=== PATIENT | female | born 1980 | race African-American/Black ===

== ENCOUNTER → 2016-10-25 | Outpatient (CLI) | payer BC ==
--- NOTE | 2016-10-25 12:35 | RAD ---
Indication heavy painful menstruation. Initially transabdominal scans were obtained. The initial transabdominal scans were supplemented with transvaginal scans. The hCG status is uncertain but for the purposes of this dictation will be assumed to be negative. The uterus measures approximately 10 x 6 x 4 cm. The endometrial thickness of approximately 7 mm is normal. Note is made that the uterus and endometrium are somewhat vascular. This is nonspecific. The ovaries appeared unremarkable. Occasional follicular cysts were identified. IMPRESSION: No significant finding seen on pelvic ultrasound exam
== END | disposition home or self-care (01) ==
LOC: US 12:02
PROVIDERS: ATTEND Obstetrics & Gynecology
DX: N92.0 Excessive and frequent menstruation with regular cycle (principal); N94.6 Dysmenorrhea, unspecified
CPT/HCPCS: 76830; 76856

== ENCOUNTER 2017-09-21 14:17 | Emergency (ER) | payer BC ==
[2017-09-21] MEDS: cefTRIAXone IM 250 MG VIAL IM (14:58)
[2017-09-21] MEDS: AZITHROMYCIN 250 MG TABLET. PO (14:58)
[2017-09-21] MEDS: HYDROcodone/APAP 5/325MG 1 TAB TABLET PO (15:01)
[2017-09-21 15:43] LABS: BILIRUBIN,URINE NEGATIVE (NEG); CLARITY,URINE CLEAR; COLOR,URINE YELLOW; GLUCOSE,URINE NEGATIVE (NEG); NITRITE,URINE NEGATIVE (NEG); PH,URINE 5.5; PROTEIN,URINE NEGATIVE (NEG-TRACE); UROBILINOGEN,URINE 0.2 mg/dL (0.2 mg/dL)
[2017-09-21 16:01] LABS: BACTERIA,URINE 0 /HPF (0-FEW); RBC,URINE 0 /HPF (0-2); SQUAMOUS EPITHELIAL CELL,UR FEW /LPF; WBC,URINE 0 /HPF (0-4)
[2017-09-24 14:31] LABS: CHLAMYDIA PROBE Negative (Negative); GC PROBE Negative (Negative)
== END 2017-09-21 16:53 | disposition home or self-care (01) ==
LOC: ER 16:53
DX: N76.0 Acute vaginitis (principal); B96.89 Other specified bacterial agents as the cause of diseases classified elsewhere; R10.2 Pelvic and perineal pain; Z98.890 Other specified postprocedural states
CPT/HCPCS: 76830; 76856; 81001; 87491; 87591; 96372; 99285-25; J0696; Q0111; Q0144

== ENCOUNTER 2017-09-28 23:53 | Emergency (ER) | payer SELFPAY ==
[~2017-09-28] VITALS: Ht 167.6 cm; Wt 75.7 kg
[~2017-09-28 23:53] MED LIST: HYDR-2758 PO; METR500T8 PO
[2017-09-29 00:19] LABS: BILIRUBIN,URINE NEGATIVE (NEG); CLARITY,URINE CLEAR; COLOR,URINE YELLOW; NITRITE,URINE NEGATIVE (NEG); PH,URINE 5.5; PROTEIN,URINE NEGATIVE (NEG-TRACE); UROBILINOGEN,URINE 0.2 mg/dL (0.2 mg/dL)
[2017-09-29 00:27] LABS: BACTERIA,URINE 0 /HPF (0-FEW); RBC,URINE RARE /HPF (0-2); SQUAMOUS EPITHELIAL CELL,UR FEW /LPF; WBC,URINE RARE /HPF (0-4)
[2017-09-29] MEDS ORDERED: KETOROLAC 30 MG/ML VIAL. IV ONE (01:00)
[2017-09-29 01:20] LABS: BASO % 0 % (0-3); EOS # 0.3 x10^3/uL (0.0-0.7); EOS % 3 % (0-3); HEMATOCRIT 41.2 % (36.0-47.0); HEMOGLOBIN 14.6 g/dL (12.0-15.5); LYMPH # 1.6 x10^3/uL (1.0-4.8); LYMPH % 18 % (24-48); MEAN CORPUSCULAR HEMOGLOBIN 34 pg (25-35); MEAN CORPUSCULAR HGB CONC 36 g/dL (31-37); MEAN CORPUSCULAR VOLUME 97 fL (79-100); MONO # 0.8 x10^3/uL (0.0-1.1); MONO % 9 % (0-9); NEUT # 6.1 x10^3uL (1.8-7.7); NEUT % 69 % (31-73); PLATELET COUNT 239 x10^3/uL (140-400); RED BLOOD COUNT 4.27 x10^6/uL (3.50-5.40); WHITE BLOOD COUNT 8.8 x10^3/uL (4.0-11.0)
[2017-09-29 01:29] LABS: CALCIUM 8.7 mg/dL (8.5-10.1); CREATININE 0.8 mg/dL (0.6-1.0); GFR 97.1; POTASSIUM 3.6 mmol/L (3.5-5.1)
[2017-09-29 01:35] LABS: ALBUMIN 4.1 g/dL (3.4-5.0); ALBUMIN/GLOBULIN RATIO 1.2 (1.0-1.7); MAGNESIUM 1.9 mg/dL (1.8-2.4); TOTAL BILIRUBIN 0.4 mg/dL (0.2-1.0); TOTAL PROTEIN 7.4 g/dL (6.4-8.2)
--- NOTE | 2017-09-29 02:29 | RAD ---
Ultrasound pelvis, ultrasound transvaginal 09/29/2017 Clinical indication: Severe left lower quadrant pain. COMPARISON: Ultrasound 09/21/2017, 10/25/2016, CT abdomen and pelvis 01/07/2006 FINDINGS: Endovaginal and transabdominal images were performed. Uterus measures 9.1 x 5.6 x 5.0 cm. Posterior fundal myometrial hypoechoic shadowing structure with a small anterior cystic component measuring 2.3 x 1.9 x 2.4 cm. Right aspect of the posterior fundal myometrium there is a similar-appearing shadowing structure measuring up to 0.9 cm. There is diffuse linear shadowing throughout the uterus on the cine images. Endometrium is not well visualized due to the shadowing. There are multiple cervical nabothian cysts. Trace pelvic free fluid, likely physiologic. Right ovary measures 3.4 x 2.3 x 1.8 cm with normal color Doppler imaging. Left ovary measures 3.1 x 1.5 x 1.9 cm with normal color Doppler imaging. IMPRESSION: 1. No ovarian torsion. 2. Multiple intramural uterine fibroids, largest posterior uterine fundus which abuts the endometrium and a small submucosal component cannot be excluded. 3. Diffuse uterine linear shadowing, may be due to additional smaller fibroids or adenomyosis. 4. Endometrium is not visualized due to the shadowing. Electronically signed by: Jonh Pedersen MD (09/29/2017 2:25 AM) [id number]
[2017-09-29] MEDS ORDERED: fentaNYL PF VIAL 100 MCG/2 ML VIAL IV ONE (02:30)
[2017-09-29] MEDS ORDERED: NAPR-695 PO (02:50)
--- NOTE | 2017-09-29 02:50 | PHYS DOC ---
Past Medical History Past Medical History: No Pertinent History Past Surgical History: Additional Past Surgical Histo: parathyroid,uterine ablation,sarcoidosis, Alcohol Use: Occasionally Drug Use: None Adult General Chief Complaint Chief Complaint: ABDOMINAL PAIN HPI HPI Patient is a 37 year old [f__sex] who presents with [] Review of Systems Review of Systems Constitutional: Denies fever or chills [] Eyes: Denies change in visual acuity, redness, or eye pain [] HENT: Denies nasal congestion or sore throat [] Respiratory: Denies cough or shortness of breath [] Cardiovascular: No additional information not addressed in HPI [] GI: Denies abdominal pain, nausea, vomiting, bloody stools or diarrhea [] : Denies dysuria or hematuria [] Musculoskeletal: Denies back pain or joint pain [] Integument: Denies rash or skin lesions [] Neurologic: Denies headache, focal weakness or sensory changes [] Endocrine: Denies polyuria or polydipsia [] All other systems were reviewed and found to be within normal limits, except as documented in this note. Current Medications Current Medications Current Medications Medications (Trade) Dose Ordered Sig/Alok Start Time Stop Time Status Last Admin Dose Admin Fentanyl Citrate (Fentanyl 2ml Vial) 50 mcg 1X ONCE 09/29/17 02:30 09/29/17 02:31 DC 09/29/17 02:36 50 MCG Ketorolac Tromethamine (Toradol 30mg Vial) 30 mg 1X ONCE 09/29/17 01:00 09/29/17 01:01 DC 09/29/17 00:58 30 MG Allergies Allergies Allergies Coded Allergies Type Severity Reaction Last Updated Verified No Known Drug Allergies 09/21/17 No Physical Exam Physical Exam Constitutional: Well developed, well nourished, no acute distress, non-toxic appearance. [] HENT: Normocephalic, atraumatic, bilateral external ears normal, oropharynx moist, no oral exudates, nose normal. [] Eyes: PERRLA, EOMI, conjunctiva normal, no discharge. [] Neck: Normal range of motion, no tenderness, supple, no stridor. [] Cardiovascular:Heart rate regular rhythm, no murmur [] Lungs & Thorax: Bilateral breath sounds clear to auscultation [] Abdomen: Bowel sounds normal, soft, no tenderness, no masses, no pulsatile masses. [] Skin: Warm, dry, no erythema, no rash. [] Back: No tenderness, no CVA tenderness. [] Extremities: No tenderness, no cyanosis, no clubbing, ROM intact, no edema. [] Neurologic: Alert and oriented X 3, normal motor function, normal sensory function, no focal deficits noted. [] Psychologic: Affect normal, judgement normal, mood normal. [] Current Patient Data Vital Signs Vital Signs Date Time Temp Pulse Resp B/P (MAP) Pulse Ox O2 Delivery O2 Flow Rate FiO2 09/29/17 02:36 18 99 Room Air 09/28/17 23:55 98.2 85 191/121 (144) 98.2 Lab Values Laboratory Tests Test 09/28/17 23:59 09/29/17 00:09 09/29/17 01:10 Urine Collection Type Unknown Urine Color Yellow Urine Clarity Clear Urine pH 5.5 Urine Specific [place] 1.010 Urine Protein Negative mg/dL (NEG-TRACE) Urine Glucose (UA) Negative mg/dL (NEG) Urine Ketones (Stick) Negative mg/dL (NEG) Urine Blood Negative (NEG) Urine Nitrite Negative (NEG) Urine Bilirubin Negative (NEG) Urine Urobilinogen Dipstick 0.2 mg/dL (0.2 mg/dL) Urine Leukocyte Esterase Negative (NEG) Urine RBC Rare /HPF (0-2) Urine WBC Rare /HPF (0-4) Urine Squamous Epithelial Cells Few /LPF Urine Bacteria 0 /HPF (0-FEW) POC Urine HCG, Qualitative Hcg negative (Negative) White Blood Count 8.8 x10^3/uL (4.0-11.0) Red Blood Count 4.27 x10^6/uL (3.50-5.40) Hemoglobin 14.6 g/dL (12.0-15.5) Hematocrit 41.2 % (36.0-47.0) Mean Corpuscular Volume 97 fL (79-100) Mean Corpuscular Hemoglobin 34 pg (25-35) Mean Corpuscular Hemoglobin Concent 36 g/dL (31-37) Red Cell Distribution Width 13.0 % (11.5-14.5) Platelet Count 239 x10^3/uL (140-400) Neutrophils (%) (Auto) 69 % (31-73) Lymphocytes (%) (Auto) 18 % (24-48) L Monocytes (%) (Auto) 9 % (0-9) Eosinophils (%) (Auto) 3 % (0-3) Basophils (%) (Auto) 0 % (0-3) Neutrophils # (Auto) 6.1 x10^3uL (1.8-7.7) Lymphocytes # (Auto) 1.6 x10^3/uL (1.0-4.8) Monocytes # (Auto) 0.8 x10^3/uL (0.0-1.1) Eosinophils # (Auto) 0.3 x10^3/uL (0.0-0.7) Basophils # (Auto) 0.0 x10^3/uL (0.0-0.2) Sodium Level 138 mmol/L (136-145) Potassium Level 3.6 mmol/L (3.5-5.1) Chloride Level 103 mmol/L (98-107) Carbon Dioxide Level 26 mmol/L (21-32) Anion Gap 9 (6-14) Blood Urea Nitrogen 8 mg/dL (7-20) Creatinine 0.8 mg/dL (0.6-1.0) Estimated GFR (Cockcroft-Gault) 97.1 BUN/Creatinine Ratio 10 (6-20) Glucose Level 91 mg/dL (70-99) Calcium Level 8.7 mg/dL (8.5-10.1) Magnesium Level 1.9 mg/dL (1.8-2.4) Total Bilirubin 0.4 mg/dL (0.2-1.0) Aspartate Amino Transferase (AST) 18 U/L (15-37) Alanine Aminotransferase (ALT) 21 U/L (14-59) Alkaline Phosphatase 72 U/L (46-116) Total Protein 7.4 g/dL (6.4-8.2) Albumin 4.1 g/dL (3.4-5.0) Albumin/Globulin Ratio 1.2 (1.0-1.7) Lipase 55 U/L (73-393) L Laboratory Tests 09/29/17 01:10 Laboratory Tests 09/29/17 01:10 EKG EKG [] Radiology/Procedures Radiology/Procedures [] Course & Med Decision Making Course & Med Decision Making Pertinent Labs and Imaging studies reviewed. (See chart for details) [] Dragon Disclaimer Dragon Disclaimer This electronic medical record was generated, in whole or in part, using a voice recognition dictation system. Departure Departure Impression: Primary Impression: Pelvic pain Additional Impression: Uterine fibroid Disposition: 01 HOME, SELF-CARE Condition: STABLE Referrals: NO PCP (PCP) Patient Instructions: Pelvic Pain, Female, [id number], Uterine Fibroid, Easy- to-Read Scripts Naproxen (NAPROXEN) 375 Mg Tablet 1 TAB PO TID PRN for PAIN, #20 TAB 0 Refills Prov: KARLIE ARECHIGA DO 09/29/17 Problem Qualifiers Additional Impression: Uterine fibroid Uterine leiomyoma location: unspecified location Qualified Codes: D25.9 - Leiomyoma of uterus, unspecified KARLIE ARECHIGA DO Sep 29, 2017 02:50
[2017-09-29 03:00] VITALS: BP 137/87
== END 2017-09-29 03:02 | disposition home or self-care (01) ==
LOC: ER 23:53
DX: D25.1 Intramural leiomyoma of uterus (principal); Z98.890 Other specified postprocedural states
CPT/HCPCS: 36415; 76830; 76856; 80053; 81001; 81025; 83690; 83735; 85025; 96374; 96375; 99285; J1885; J3010

== ENCOUNTER 2017-11-13 16:02 | Emergency (ER) | payer SELFPAY ==
[~2017-11-13] VITALS: Ht 167.6 cm; Wt 75.7 kg
[~2017-11-13 16:02] MED LIST changes: +NAPR-695 PO
[2017-11-13] MEDS ORDERED: IV NORMAL SALINE 1000ML BAG 1,000 ML IV ONE (16:45)
[2017-11-13] MEDS ORDERED: KETOROLAC 15 MG/ML VIAL. IV ONE (16:45)
[2017-11-13] MEDS ORDERED: ORPHENADRINE CITRATE 60 MG/2 ML VIAL. IV ONE (16:45)
[2017-11-13 17:09] LABS: BASO % 0 % (0-3); EOS % 0 % (0-3); HEMATOCRIT 44.9 % (36.0-47.0); HEMOGLOBIN 15.6 g/dL (12.0-15.5); LYMPH % 13 % (24-48); MEAN CORPUSCULAR HEMOGLOBIN 34 pg (25-35); MEAN CORPUSCULAR HGB CONC 35 g/dL (31-37); MEAN CORPUSCULAR VOLUME 97 fL (79-100); MONO # 0.5 x10^3/uL (0.0-1.1); MONO % 6 % (0-9); NEUT # 6.3 x10^3uL (1.8-7.7); NEUT % 81 % (31-73); PLATELET COUNT 261 x10^3/uL (140-400); RED BLOOD COUNT 4.62 x10^6/uL (3.50-5.40); RED CELL DISTRIBUTION WIDTH 13.5 % (11.5-14.5); WHITE BLOOD COUNT 7.8 x10^3/uL (4.0-11.0)
[2017-11-13 17:20] LABS: BILIRUBIN,URINE NEGATIVE (NEG); CLARITY,URINE CLOUDY; COLOR,URINE YELLOW; NITRITE,URINE NEGATIVE (NEG); PROTEIN,URINE NEGATIVE (NEG-TRACE); UROBILINOGEN,URINE 0.2 mg/dL (0.2 mg/dL)
[2017-11-13 17:21] LABS: CALCIUM 9.5 mg/dL (8.5-10.1); CREATININE 0.8 mg/dL (0.6-1.0); GFR 97.1; POTASSIUM 4.1 mmol/L (3.5-5.1)
[2017-11-13 17:38] LABS: ALBUMIN 4.2 g/dL (3.4-5.0); ALBUMIN/GLOBULIN RATIO 1.1 (1.0-1.7); TOTAL BILIRUBIN 0.5 mg/dL (0.2-1.0); TOTAL PROTEIN 8.2 g/dL (6.4-8.2)
[2017-11-13 17:40] LABS: BACTERIA,URINE FEW /HPF (0-FEW)
[2017-11-13 17:41] LABS: SQUAMOUS EPITHELIAL CELL,UR FEW /LPF
--- NOTE | 2017-11-13 17:42 | RAD ---
Pelvic ultrasound to include transabdominal and transvaginal imaging 11/13/2017 CLINICAL HISTORY: Left adnexal pain. TECHNIQUE: Using the distended urinary bladder as a sonographic window, a real-time ultrasound examination of the pelvis was performed. Additionally in an attempt to better evaluate the uterus and adnexa, a transvaginal ultrasound study was performed. Multiple images were obtained. FINDINGS: Comparison study is dated 09/29/2017. The uterus is mildly enlarged. It measures 9.0 x 6.1 x 6.4 cm in longitudinal, transverse, and AP dimension. Nabothian cysts are seen within the cervix which measure 6 mm to 8 mm in size. An oval-shaped mass is seen within the mid uterine body posterior to the endometrial echo complex. This has a fluid component superiorly. The inferior aspect is echogenic. It measures 3.5 cm in greatest diameter. This has a different sonographic appearance when compared to the patient's previous ultrasound study where it was felt to represent a uterine fibroid. This could represent a fibroid with hemorrhage or could represent complex fluid within the endometrium. The right ovary is normal in size and echogenicity. It measures 3.8 x 1.6 x 1.5 cm in size. Left ovary is normal in size. It measures 4.9 x 2.3 x 2.0 cm in size. Within the left ovary a oval-shaped anechoic structure with internal echoes is seen. It measures 2.5 cm in greatest diameter. This likely represents a hemorrhagic cyst. No free fluid is seen. IMPRESSION: 1. 3.5 cm complex cystic mass is seen immediately posterior to the endometrial echo complex within the uterine body. There there has been a significant change in its sonographic appearance since the previous examination. This could represent a fibroid with hemorrhage or complex fluid within the endometrium. 2. 2.5 cm probable hemorrhagic cyst involving the left ovary. Electronically signed by: Kwan Glasgow MD (11/13/2017 5:38 PM) [facility]
[2017-11-13] MEDS ORDERED: OXYC-323 PO (17:54)
--- NOTE | 2017-11-13 17:55 | PHYS DOC ---
Past Medical History Past Medical History: Uterine Fibroids Additional Past Medical Histor: Sarcoidosis Past Surgical History: Additional Past Surgical Histo: parathyroid, uterine ablation, D&C Alcohol Use: Occasionally Drug Use: None Adult General Chief Complaint Chief Complaint: ABDOMINAL PAIN HPI HPI Patient is a 37 year old [f__sex] who presents with [] Review of Systems Review of Systems Constitutional: Denies fever or chills [] Eyes: Denies change in visual acuity, redness, or eye pain [] HENT: Denies nasal congestion or sore throat [] Respiratory: Denies cough or shortness of breath [] Cardiovascular: No additional information not addressed in HPI [] GI: Denies abdominal pain, nausea, vomiting, bloody stools or diarrhea [] : Denies dysuria or hematuria [] Musculoskeletal: Denies back pain or joint pain [] Integument: Denies rash or skin lesions [] Neurologic: Denies headache, focal weakness or sensory changes [] Endocrine: Denies polyuria or polydipsia [] All other systems were reviewed and found to be within normal limits, except as documented in this note. Current Medications Current Medications Current Medications Medications (Trade) Dose Ordered Sig/Alok Start Time Stop Time Status Last Admin Dose Admin Ketorolac Tromethamine (Toradol 15mg Vial) 15 mg 1X ONCE 11/13/17 16:45 11/13/17 16:49 DC 11/13/17 17:10 15 MG Orphenadrine Citrate (Norflex) 60 mg 1X ONCE 11/13/17 16:45 11/13/17 16:49 DC 11/13/17 17:09 60 MG Sodium Chloride 1,000 ml @ 1,000 mls/hr 1X ONCE 11/13/17 16:45 11/13/17 17:44 DC 11/13/17 17:05 1,000 MLS/HR Allergies Allergies Allergies Coded Allergies Type Severity Reaction Last Updated Verified No Known Drug Allergies 09/21/17 No Physical Exam Physical Exam Constitutional: Well developed, well nourished, no acute distress, non-toxic appearance. [] HENT: Normocephalic, atraumatic, bilateral external ears normal, oropharynx moist, no oral exudates, nose normal. [] Eyes: PERRLA, EOMI, conjunctiva normal, no discharge. [] Neck: Normal range of motion, no tenderness, supple, no stridor. [] Cardiovascular:Heart rate regular rhythm, no murmur [] Lungs & Thorax: Bilateral breath sounds clear to auscultation [] Abdomen: Bowel sounds normal, soft, no tenderness, no masses, no pulsatile masses. [] Skin: Warm, dry, no erythema, no rash. [] Back: No tenderness, no CVA tenderness. [] Extremities: No tenderness, no cyanosis, no clubbing, ROM intact, no edema. [] Neurologic: Alert and oriented X 3, normal motor function, normal sensory function, no focal deficits noted. [] Psychologic: Affect normal, judgement normal, mood normal. [] Current Patient Data Vital Signs Vital Signs Date Time Temp Pulse Resp B/P (MAP) Pulse Ox O2 Delivery O2 Flow Rate FiO2 11/13/17 16:05 98.1 87 24 167/120 (136) 98 Room Air 98.1 Lab Values Laboratory Tests Test 11/13/17 16:50 11/13/17 17:00 11/13/17 17:14 White Blood Count 7.8 x10^3/uL (4.0-11.0) Red Blood Count 4.62 x10^6/uL (3.50-5.40) Hemoglobin 15.6 g/dL (12.0-15.5) H Hematocrit 44.9 % (36.0-47.0) Mean Corpuscular Volume 97 fL (79-100) Mean Corpuscular Hemoglobin 34 pg (25-35) Mean Corpuscular Hemoglobin Concent 35 g/dL (31-37) Red Cell Distribution Width 13.5 % (11.5-14.5) Platelet Count 261 x10^3/uL (140-400) Neutrophils (%) (Auto) 81 % (31-73) H Lymphocytes (%) (Auto) 13 % (24-48) L Monocytes (%) (Auto) 6 % (0-9) Eosinophils (%) (Auto) 0 % (0-3) Basophils (%) (Auto) 0 % (0-3) Neutrophils # (Auto) 6.3 x10^3uL (1.8-7.7) Lymphocytes # (Auto) 1.0 x10^3/uL (1.0-4.8) Monocytes # (Auto) 0.5 x10^3/uL (0.0-1.1) Eosinophils # (Auto) 0.0 x10^3/uL (0.0-0.7) Basophils # (Auto) 0.0 x10^3/uL (0.0-0.2) Sodium Level 139 mmol/L (136-145) Potassium Level 4.1 mmol/L (3.5-5.1) Chloride Level 101 mmol/L (98-107) Carbon Dioxide Level 25 mmol/L (21-32) Anion Gap 13 (6-14) Blood Urea Nitrogen 8 mg/dL (7-20) Creatinine 0.8 mg/dL (0.6-1.0) Estimated GFR (Cockcroft-Gault) 97.1 BUN/Creatinine Ratio 10 (6-20) Glucose Level 107 mg/dL (70-99) H Calcium Level 9.5 mg/dL (8.5-10.1) Magnesium Level 2.0 mg/dL (1.8-2.4) Total Bilirubin 0.5 mg/dL (0.2-1.0) Aspartate Amino Transferase (AST) 21 U/L (15-37) Alanine Aminotransferase (ALT) 28 U/L (14-59) Alkaline Phosphatase 79 U/L (46-116) Total Protein 8.2 g/dL (6.4-8.2) Albumin 4.2 g/dL (3.4-5.0) Albumin/Globulin Ratio 1.1 (1.0-1.7) Urine Collection Type Void Urine Color Yellow Urine Clarity Cloudy Urine pH 6.0 Urine Specific [place] 1.015 Urine Protein Negative mg/dL (NEG-TRACE) Urine Glucose (UA) Negative mg/dL (NEG) Urine Ketones (Stick) Negative mg/dL (NEG) Urine Blood Negative (NEG) Urine Nitrite Negative (NEG) Urine Bilirubin Negative (NEG) Urine Urobilinogen Dipstick 0.2 mg/dL (0.2 mg/dL) Urine Leukocyte Esterase Negative (NEG) Urine RBC 1-2 /HPF (0-2) Urine WBC 1-4 /HPF (0-4) Urine Squamous Epithelial Cells Few /LPF Urine Bacteria Few /HPF (0-FEW) Urine Mucus Slight /LPF POC Urine HCG, Qualitative Hcg negative (Negative) Laboratory Tests 11/13/17 16:50 Laboratory Tests 11/13/17 16:50 EKG EKG [] Radiology/Procedures Radiology/Procedures [] Course & Med Decision Making Course & Med Decision Making Pertinent Labs and Imaging studies reviewed. (See chart for details) [] Dragon Disclaimer Dragon Disclaimer This electronic medical record was generated, in whole or in part, using a voice recognition dictation system. Departure Departure Impression: Primary Impression: Pelvic pain Disposition: HOME, SELF-CARE Condition: STABLE Referrals: NO PCP (PCP) BARRY HIGGINS MD Patient Instructions: Fibroids, [id number], Pelvic Pain, Female, [id number] Scripts Oxycodone/Apap 5-325 (PERCOCET 5-325 MG TABLET) 1 Each Tablet 1 TAB PO PRN Q6HRS PRN for PAIN, #14 TAB 0 Refills Prov: KARLIE ARECHIGA DO 11/13/17 KARLIE ARECHIGA DO Nov 13, 2017 17:55
[2017-11-13] MEDS ORDERED: oxyCODONE/APAP 7.5/325 1 TAB TABLET PO ONE (18:15)
[2017-11-13 18:25] VITALS: BP 162/88
== END 2017-11-13 18:29 | disposition home or self-care (01) ==
LOC: ER 16:02
DX: R10.2 Pelvic and perineal pain (principal); Z98.890 Other specified postprocedural states
CPT/HCPCS: 36415; 76830; 76856; 80053; 81001; 81025; 83735; 85025; 96374; 96375; 99285; J1885; J2360; J7030

== ENCOUNTER 2018-06-09 05:58 | Emergency (ER) | payer BC ==
[~2018-06-09] VITALS: Ht 167.6 cm; Wt 75.7 kg
[~2018-06-09 05:58] MED LIST changes: -HYDR-2758 PO; +HYDR-2761 PO; +METR-34 PO; -METR500T8 PO; +OXYC1TAB15 PO
[2018-06-09 06:25] LABS: BILIRUBIN,URINE NEGATIVE (NEG); CLARITY,URINE CLEAR; COLOR,URINE YELLOW; NITRITE,URINE NEGATIVE (NEG); PROTEIN,URINE NEGATIVE (NEG-TRACE)
--- NOTE | 2018-06-09 06:26 | PHYS DOC ---
Past Medical History Past Medical History: Uterine Fibroids Additional Past Medical Histor: Sarcoidosis Past Surgical History: Additional Past Surgical Histo: parathyroid, uterine ablation, D&C Alcohol Use: Occasionally Drug Use: None Adult General Chief Complaint Chief Complaint: ABDOMINAL PAIN HPI HPI Patient is a 38 year old female presented to ER today for evaluation of right lower abdominal pain started about 1 hour ago. Patient also complaint of nausea and vomiting. Patient denies any fever, no diarrhea. Patient has history ovarian cysts in the past. She denies any history of kidney stone. Patient still has her appendix. She denies any vaginal bleeding or discharge. Patient is not . Review of Systems Review of Systems Constitutional: Denies fever or chills [] Eyes: Denies change in visual acuity, redness, or eye pain [] HENT: Denies nasal congestion or sore throat [] Respiratory: Denies cough or shortness of breath [] Cardiovascular: No additional information not addressed in HPI [] GI: Positive for abdominal pain, nausea, vomiting, NO bloody stools or diarrhea [] : Denies dysuria or hematuria [] Musculoskeletal: Denies back pain or joint pain [] Integument: Denies rash or skin lesions [] Neurologic: Denies headache, focal weakness or sensory changes [] Endocrine: Denies polyuria or polydipsia [] All other systems were reviewed and found to be within normal limits, except as documented in this note. Current Medications Current Medications Current Medications Medications (Trade) Dose Ordered Sig/Alok Start Time Stop Time Status Last Admin Dose Admin Info (CONTRAST GIVEN -- Rx MONITORING) 1 each PRN DAILY PRN 06/09/18 07:15 06/11/18 07:14 Iohexol (Omnipaque 300 Mg/ml) 75 ml 1X ONCE 06/09/18 07:15 06/09/18 07:16 DC 06/09/18 07:28 75 ML Ketorolac Tromethamine (Toradol 30mg Vial) 30 mg 1X ONCE 06/09/18 07:45 06/09/18 07:46 DC 06/09/18 07:48 30 MG Morphine Sulfate (Morphine Sulfate) 4 mg 1X ONCE 06/09/18 07:00 06/09/18 07:01 DC 06/09/18 06:34 4 MG Ondansetron HCl (Zofran) 4 mg 1X ONCE 06/09/18 07:00 06/09/18 07:01 DC 06/09/18 06:34 4 MG Sodium Chloride 1,000 ml @ 1,000 mls/hr 1X ONCE 06/09/18 07:00 06/09/18 07:59 DC 06/09/18 06:33 1,000 MLS/HR Allergies Allergies Allergies Coded Allergies Type Severity Reaction Last Updated Verified acetaminophen Allergy Severe Hives 06/09/18 Yes oxycodone Allergy Severe Hives 06/09/18 Yes Physical Exam Physical Exam Constitutional: Well developed, well nourished, no acute distress, non-toxic appearance. [] HENT: Normocephalic, atraumatic, bilateral external ears normal, oropharynx moist, no oral exudates, nose normal. [] Eyes: PERRLA, EOMI, conjunctiva normal, no discharge. [] Neck: Normal range of motion, no tenderness, supple, no stridor. [] Cardiovascular:Heart rate regular rhythm, no murmur [] Lungs & Thorax: Bilateral breath sounds clear to auscultation [] Abdomen: Bowel sounds normal, soft, There is tenderness to palpation in RLQ, no rebound, no guarding, no masses, no pulsatile masses. [] Skin: Warm, dry, no erythema, no rash. [] Back: No tenderness, no CVA tenderness. [] Extremities: No tenderness, no cyanosis, no clubbing, ROM intact, no edema. [] Neurologic: Alert and oriented X 3, normal motor function, normal sensory functi on, no focal deficits noted. [] Psychologic: Affect normal, judgement normal, mood normal. [] Current Patient Data Vital Signs Vital Signs Date Time Temp Pulse Resp B/P (MAP) Pulse Ox O2 Delivery O2 Flow Rate FiO2 06/09/18 08:30 90 18 154/95 (114) 99 06/09/18 06:11 99.1 Room Air 99.1 Lab Values Laboratory Tests Test 06/09/18 06:15 06/09/18 06:19 White Blood Count 8.1 x10^3/uL (4.0-11.0) Red Blood Count 4.60 x10^6/uL (3.50-5.40) Hemoglobin 15.1 g/dL (12.0-15.5) Hematocrit 42.9 % (36.0-47.0) Mean Corpuscular Volume 93 fL (79-100) Mean Corpuscular Hemoglobin 33 pg (25-35) Mean Corpuscular Hemoglobin Concent 35 g/dL (31-37) Red Cell Distribution Width 13.3 % (11.5-14.5) Platelet Count 260 x10^3/uL (140-400) Neutrophils (%) (Auto) 63 % (31-73) Lymphocytes (%) (Auto) 26 % (24-48) Monocytes (%) (Auto) 8 % (0-9) Eosinophils (%) (Auto) 3 % (0-3) Basophils (%) (Auto) 1 % (0-3) Neutrophils # (Auto) 5.1 x10^3uL (1.8-7.7) Lymphocytes # (Auto) 2.1 x10^3/uL (1.0-4.8) Monocytes # (Auto) 0.6 x10^3/uL (0.0-1.1) Eosinophils # (Auto) 0.3 x10^3/uL (0.0-0.7) Basophils # (Auto) 0.0 x10^3/uL (0.0-0.2) Urine Collection Type Unknown Urine Color Yellow Urine Clarity Clear Urine pH 6.0 Urine Specific [place] 1.015 Urine Protein Negative mg/dL (NEG-TRACE) Urine Glucose (UA) Negative mg/dL (NEG) Urine Ketones (Stick) Negative mg/dL (NEG) Urine Blood Negative (NEG) Urine Nitrite Negative (NEG) Urine Bilirubin Negative (NEG) Urine Urobilinogen Dipstick 1.0 mg/dL (0.2 mg/dL) Urine Leukocyte Esterase Negative (NEG) Urine RBC Occ /HPF (0-2) Urine WBC Occ /HPF (0-4) Urine Squamous Epithelial Cells Mod /LPF Urine Bacteria 0 /HPF (0-FEW) Sodium Level 138 mmol/L (136-145) Potassium Level 3.8 mmol/L (3.5-5.1) Chloride Level 103 mmol/L (98-107) Carbon Dioxide Level 22 mmol/L (21-32) Anion Gap 13 (6-14) Blood Urea Nitrogen 13 mg/dL (7-20) Creatinine 0.7 mg/dL (0.6-1.0) Estimated GFR (Cockcroft-Gault) 112.7 BUN/Creatinine Ratio 19 (6-20) Glucose Level 85 mg/dL (70-99) Calcium Level 9.1 mg/dL (8.5-10.1) Total Bilirubin 0.3 mg/dL (0.2-1.0) Aspartate Amino Transferase (AST) 34 U/L (15-37) Alanine Aminotransferase (ALT) 31 U/L (14-59) Alkaline Phosphatase 117 U/L (46-116) H Total Protein 8.0 g/dL (6.4-8.2) Albumin 3.9 g/dL (3.4-5.0) Albumin/Globulin Ratio 1.0 (1.0-1.7) Lipase 79 U/L (73-393) POC Urine HCG, Qualitative Hcg negative (Negative) Laboratory Tests 06/09/18 06:15 Laboratory Tests 06/09/18 06:15 EKG EKG [] Radiology/Procedures Radiology/Procedures [][address] [address] IMAGING REPORT Signed PATIENT: SEA CANDELARIO ACCOUNT: [id number] : 1980 LOCATION: ER AGE: 38 SEX: F EXAM STATUS: REG ER ORD. PHYSICIAN: CHAITANYA QUEEN DO REASON: RIGHT SIDE PELVIC PAIN. PROCEDURE: PELVIS COMPLETE Pelvic ultrasound Comparison: None History: Right lower quadrant pain Findings: Multiple transabdominal sonographic images of the pelvis are submitted. Uterus measured about 10 x 3.8 x 6.2 cm. There is a hypoechoic lesion of the uterine fundus about 1.2 x 0.9 x 1.1 cm. Right ovary measured 2.7 x 1.7 x 3.9 cm, normal low resistance vascularity. Endometrium is thin at 0.4 cm. Left ovary measured 1.7 x 2.6 x 1.8 cm with normal low resistance vascularity. No significant free fluid is demonstrated. Impression 1. Other than small nonspecific cystic lesion of the uterine fundus, no other abnormality is demonstrated. DICTATED and SIGNED BY: SUDEEP MELGAR MD DATE: 06/09/18 0923 [facility] [address] [place] [address] IMAGING REPORT Signed PATIENT: SEA CANDELARIO ACCOUNT: [id number] : 1980 LOCATION: ER AGE: 38 SEX: F EXAM STATUS: REG ER ORD. PHYSICIAN: CHAITANYA QUEEN DO REASON: RLQ ABDOMINAL PAIN PROCEDURE: CT ABD PELV W/ IV CONTRST ONLY CT ABD PELV W/ IV CONTRST ONLY Indication: Right lower quadrant pain this a.m. Technique: Postcontrast CT imaging was performed of the abdomen pelvis, multiplanar reconstruction images submitted. No oral contrast was given as per request. One or more of the following individualized dose reduction techniques were utilized for this examination: 1. Automated exposure control 2. Adjustment of the mA and/or kV according to patient size 3. Use of iterative reconstruction technique. Comparison: January 07, 2006 Findings: There is no abnormality of the limited visualized lung bases. No focal abnormality is identified of the liver, spleen, pancreas. Gallbladder is present without obvious intraluminal abnormality by CT. Both kidneys enhance, no significant hydronephrosis. There is now small hypodense lesion of the mid left kidney about 0.9 cm, density measurements greater than a simple cyst 40 Hounsfield units. There is another larger hypodense lesion of the more inferior left kidney about 3.2 cm, density measurements more cystlike about 19 Hounsfield units. Accurate evaluation of bowel is limited without oral contrast. At least a segment of normal appendix is believed to be visualized although difficult to visualize in its entirety. There is no free air. There is likely some very minimal free fluid in the pelvis. It is difficult to exclude some variable mild bowel wall thickening such as of segments of small bowel in the pelvis and of the mid sigmoid colon in the pelvis. There is a focus of hypodensity of the uterus about 1 cm in size with internal cystic characteristics of 15 Hounsfield units. IMPRESSION: 1. At least a segment of normal caliber appendix is believed to be visualized although not well visualized in its entirety to entirely exclude acute appendicitis by imaging. There is minimal nonspecific free fluid in the pelvis. It is difficult to exclude component of mild bowel wall thickening such as of small bowel in the pelvis and of the mid sigmoid colon as could be seen with mild enterocolitis although findings could be accentuated by peristalsis and incomplete distention. 2. There is inferior left renal cyst, another smaller hypodense lesion of the mid left kidney too small to accurately characterize. Electronically signed by: Sudeep Melgar MD (06/09/2018 7:42 AM) [facility] DICTATED and SIGNED BY: SUDEEP MELGAR MD DATE: 06/09/18 0742 Course & Med Decision Making Course & Med Decision Making Pertinent Labs and Imaging studies reviewed. (See chart for details) [] Dragon Disclaimer Dragon Disclaimer This electronic medical record was generated, in whole or in part, using a voice recognition dictation system. Departure Departure Impression: Primary Impression: Abdominal pain Disposition: 01 HOME, SELF-CARE Condition: IMPROVED Referrals: NO PCP (PCP) follow up with your family doctor next week if you started having the pain again. Patient Instructions: Abdominal Pain Scripts Tramadol Hcl (TRAMADOL HCL) 50 Mg Tablet 50 MG PO Q6HRS PRN for PAIN, #15 TAB Prov: CHAITANYA QUEEN DO 06/09/18 CHAITANYA QUEEN DO Jun 09, 2018 06:26
[2018-06-09 06:27] LABS: BASO % 1 % (0-3); EOS # 0.3 x10^3/uL (0.0-0.7); EOS % 3 % (0-3); HEMATOCRIT 42.9 % (36.0-47.0); HEMOGLOBIN 15.1 g/dL (12.0-15.5); LYMPH # 2.1 x10^3/uL (1.0-4.8); LYMPH % 26 % (24-48); MEAN CORPUSCULAR HEMOGLOBIN 33 pg (25-35); MEAN CORPUSCULAR HGB CONC 35 g/dL (31-37); MEAN CORPUSCULAR VOLUME 93 fL (79-100); MONO # 0.6 x10^3/uL (0.0-1.1); MONO % 8 % (0-9); NEUT # 5.1 x10^3uL (1.8-7.7); NEUT % 63 % (31-73); PLATELET COUNT 260 x10^3/uL (140-400); RED CELL DISTRIBUTION WIDTH 13.3 % (11.5-14.5); WHITE BLOOD COUNT 8.1 x10^3/uL (4.0-11.0)
[2018-06-09 06:39] LABS: BACTERIA,URINE 0 /HPF (0-FEW); CALCIUM 9.1 mg/dL (8.5-10.1); CREATININE 0.7 mg/dL (0.6-1.0); GFR 112.7; POTASSIUM 3.8 mmol/L (3.5-5.1); RBC,URINE OCC /HPF (0-2); SQUAMOUS EPITHELIAL CELL,UR MOD /LPF; WBC,URINE OCC /HPF (0-4)
[2018-06-09 06:43] LABS: ALBUMIN 3.9 g/dL (3.4-5.0); TOTAL BILIRUBIN 0.3 mg/dL (0.2-1.0)
[2018-06-09] MEDS ORDERED: MORPHINE SULFATE 4 MG/ML VIAL. IV ONE (07:00)
[2018-06-09] MEDS ORDERED: ONDANSETRON PF 4 MG/2 ML VIAL. IV ONE (07:00)
[2018-06-09] MEDS ORDERED: IV NORMAL SALINE 1000ML BAG 1,000 ML IV ONE (07:00)
[2018-06-09] MEDS ORDERED: IOHEXOL 300 MG/ML 100ML VIAL. IV ONE (07:15)
[2018-06-09] MEDS ORDERED: CONTRAST GIVEN. MC PRN (07:15)
[2018-06-09] MEDS ORDERED: KETOROLAC 30 MG/ML VIAL. IV ONE (07:45)
--- NOTE | 2018-06-09 07:45 | RAD ---
CT ABD PELV W/ IV CONTRST ONLY Indication: Right lower quadrant pain this a.m. Technique: Postcontrast CT imaging was performed of the abdomen pelvis, multiplanar reconstruction images submitted. No oral contrast was given as per request. One or more of the following individualized dose reduction techniques were utilized for this examination: 1. Automated exposure control 2. Adjustment of the mA and/or kV according to patient size 3. Use of iterative reconstruction technique. Comparison: January 07, 2006 Findings: There is no abnormality of the limited visualized lung bases. No focal abnormality is identified of the liver, spleen, pancreas. Gallbladder is present without obvious intraluminal abnormality by CT. Both kidneys enhance, no significant hydronephrosis. There is now small hypodense lesion of the mid left kidney about 0.9 cm, density measurements greater than a simple cyst 40 Hounsfield units. There is another larger hypodense lesion of the more inferior left kidney about 3.2 cm, density measurements more cystlike about 19 Hounsfield units. Accurate evaluation of bowel is limited without oral contrast. At least a segment of normal appendix is believed to be visualized although difficult to visualize in its entirety. There is no free air. There is likely some very minimal free fluid in the pelvis. It is difficult to exclude some variable mild bowel wall thickening such as of segments of small bowel in the pelvis and of the mid sigmoid colon in the pelvis. There is a focus of hypodensity of the uterus about 1 cm in size with internal cystic characteristics of 15 Hounsfield units. IMPRESSION: 1. At least a segment of normal caliber appendix is believed to be visualized although not well visualized in its entirety to entirely exclude acute appendicitis by imaging. There is minimal nonspecific free fluid in the pelvis. It is difficult to exclude component of mild bowel wall thickening such as of small bowel in the pelvis and of the mid sigmoid colon as could be seen with mild enterocolitis although findings could be accentuated by peristalsis and incomplete distention. 2. There is inferior left renal cyst, another smaller hypodense lesion of the mid left kidney too small to accurately characterize. Electronically signed by: Clark Isaacs MD (06/09/2018 7:42 AM) [facility]
--- NOTE | 2018-06-09 09:32 | RAD ---
Pelvic ultrasound Comparison: None History: Right lower quadrant pain Findings: Multiple transabdominal sonographic images of the pelvis are submitted. Uterus measured about 10 x 3.8 x 6.2 cm. There is a hypoechoic lesion of the uterine fundus about 1.2 x 0.9 x 1.1 cm. Right ovary measured 2.7 x 1.7 x 3.9 cm, normal low resistance vascularity. Endometrium is thin at 0.4 cm. Left ovary measured 1.7 x 2.6 x 1.8 cm with normal low resistance vascularity. No significant free fluid is demonstrated. Impression 1. Other than small nonspecific cystic lesion of the uterine fundus, no other abnormality is demonstrated.
[2018-06-09] MEDS ORDERED: TRAM50TA PO (09:59)
[2018-06-09 10:00] VITALS: BP 150/96
== END 2018-06-09 10:03 | disposition home or self-care (01) ==
LOC: ER 05:58
DX: R10.31 Right lower quadrant pain (principal); R11.2 Nausea with vomiting, unspecified; Z98.890 Other specified postprocedural states; Z88.6 Allergy status to analgesic agent; Z88.5 Allergy status to narcotic agent
CPT/HCPCS: 36415; 74177; 76856; 80053; 81001; 81025; 83690; 85025; 96361; 96374; 96375; 99285; J1885; J2270; J2405; J7030; Q9967